=== PATIENT | female | born 1945 | race Caucasian/White ===

== ENCOUNTER 2017-11-05 11:19 | Inpatient (IN) | payer MEDICARE ==
--- NOTE | 2017-11-05 11:33 | Emergency Department Record ---
History of Present Illness - General Chief Complaint: Abdominal Pain Stated Complaint: ABD PAIN Time Seen by Provider: 11/05/17 11:32 Source: Patient Mode of Arrival: Ambulatory Limitations: No limitations - History of Present Illness Initial Comments: The patient is here due to a 14 hour hx of crampy lower abdominal pain with bloody stool for 14 hours. She has had multiple episodes since the onset numbering about 4. The patient denies any nausea, vomiting, fever, or use of any blood thinners. She has had a hysterectomy in the past and her last colonoscopy was 10 years ago. MD Complaint: Abdominal pain Onset/Timin -: Hour(s) Location: Suprapubic Migration to: No migration Quality: Cramping Consistency: Intermittent Associated Symptoms: Diarrhea, Melena, Other - Related Data Previous Rx's Medication Instructions Recorded Meclizine HCl [Antivert] 25 mg PO Q8H PRN #20 tablet 03/07/16 Allergies Allergy/AdvReac Type Severity Reaction Status Date / Time No Known Drug Allergies Allergy Verified 11/05/17 11:33 Travel Screening - Travel/Exposure Within Last 30 Days Have you traveled within the last 30 days?: No - Travel/Exposure Within Last Year Have you traveled outside the [place] in the last year?: No - Additonal Travel Details Have you been exposed to anyone with a communicable illness?: No - Travel Symptoms Symptom Screening: None Review of Systems Constitutional: Denies: Chills, Fever Eyes: Denies: Eye discharge ENT: Denies: Congestion Respiratory: Denies: Cough, Dyspnea Past Medical History - SOCIAL HISTORY Smoking Status: Never smoker Alcohol Use: None Drug Use: Occasional Drug Use Detail:: Marijuana - RESPIRATORY Hx Respiratory Disorders: No - CARDIOVASCULAR Hx Cardio Disorders: No - NEURO Hx Neuro Disorders: No - GI Hx GI Disorders: No - Hx Genitourinary Disorders: No - ENDOCRINE Hx Endocrine Disorders: No - MUSCULOSKELETAL Hx Musculoskeletal Disorders: No - PSYCH Hx Psych Problems: No - HEMATOLOGY/ONCOLOGY Hx Hematology/Oncology Disorders: No Family Medical History Any Significant Family History?: No Physical Exam - General General Appearance: Alert, Oriented x3, Cooperative, No acute distress - Head Head exam: Atraumatic, Normocephalic, Normal inspection - Eye Eye exam: Normal appearance, PERRL - ENT Throat exam: Normal inspection. negative: Tonsillar erythema, Tonsillar exudate - Neck Neck exam: Normal inspection, Full ROM. negative: Tenderness - Respiratory Respiratory exam: Normal lung sounds bilaterally. negative: Respiratory distress - Cardiovascular Cardiovascular Exam: Regular rate, Normal rhythm, Normal heart sounds - GI/Abdominal GI/Abdominal exam: Soft, Tenderness (There is mild lower abdominal tenderness.) . negative: Distended, Guarding, Rebound, Rigid - Rectal Rectal exam: Heme (+) stool, Normal inspection, Normal rectal tone - Extremities Extremities exam: Normal inspection, Full ROM, Normal capillary refill. negative: Tenderness - Neurological Neurological exam: Alert. negative: Motor sensory deficit Course Vital Signs 11/05/17 11:23 Temperature 98.1 F Pulse Rate 118 H Respiratory 20 Rate Blood Pressure 152/105 Pulse Ox 96 - Reevaluation(s) Reevaluation #1: The patient is doing better at this time. She was having some crampy pain after drinking the contrast but that is better now. She also has had 2 liquid BM's here in the ER and she thinks the last one did not have blood in it. 11/05/17 13:22 11/05/17 13:23 Reevaluation #2: The patient is doing a lot better at this time. Her HR was about 150 in what appeared to Aflutter. Now it appears she did convert back to NSR at 110. 11/05/17 14:24 Reevaluation #3: 2nd EKG: Sinus Tach at 104, neg ST-T changes. 11/05/17 14:44 Reevaluation #4: The patient is doing much better at this time. She is resting with no pain or discomfort. I did discuss the case with the patient and did recommend hospital admission and she did agree. I then did discuss the case with Dr. Gonzales and he did accept the patient for admission. 11/05/17 14:55 Medical Decision Making - Data Complexity MDM Data: Labs Ordered and/or Reviewed, X-Ray Ordered and/or Reviewed, EKG Ordered and/or Reviewed - Lab Data Result diagrams: 11/05/17 11:50 11/05/17 11:50 - EKG Data -: EKG Interpreted by Me (Aflutter at 150. ) EKG: Abnormal EKG - Radiology Data Radiology results: Report reviewed (CT: Colitis L colon from splenic flexure to mid sigmoid colon.) Disposition Disposition: Admit Clinical Impression: Lower GI bleed Disposition: Still a Patient at [facility] Decision to Admit: Admit from ER Decision to Admit Date: 11/05/17 Decision to Admit Time: 15:07 Accepting Physician: Janet Time Discussed w/Accepting Physician: 15:07 Condition: (2) Stable Time of Disposition: 15:07 Quality - Quality Measures Quality Measures: N/A - Blood Pressure Screening View Details: Yes Does Patient Have Any of the Following: No Blood Pressure Classification: Pre-Hypertensive BP Reading Systolic Measurement: 123 Diastolic Measurement: 81 Screening for High Blood Pressure: < Pre-Hypertensive BP, F/U Documented > [ [id number]] Pre-Hypertensive Follow-up Interventions: Referral to alternative/primary care provider.
[2017-11-05] MEDS ORDERED: SODIUM CHLORIDE 0.9% 500 ML IV ONE (11:40)
[2017-11-05] MEDS ORDERED: ONDANSETRON HCL IV 4 MG/2 ML VIAL IV ONE (11:40)
[2017-11-05 12:02] LABS: BASO % 0.1 % (0-6); EOS % 0.1 % (0-6); HEMATOCRIT 44.4 % (35.0-47.0); HEMOGLOBIN 15.1 gm/dl (11.6-16.0); LYMPH % 4.1 % (16-45); MEAN CELL VOLUME 84.4 fl (81-97); MEAN CORPUSCULAR HEMOGLOBIN 28.7 pg (27-33); MEAN PLATELET VOLUME 9.3 fl (7.4-10.4); MONO % 5.7 % (0-9); PLATELET COUNT 310 K/uL (130-400); RED BLOOD COUNT 5.26 M/uL (3.80-5.40); RED CELL DISTRIBUTION WIDTH 13.7 % (11.5-14.5); WHITE BLOOD COUNT W/O DIFF 19.1 K/uL (4.2-12.2)
[2017-11-05 12:14] LABS: PARTIAL THROMBOPLASTIN TIME 28.2 SECONDS (24.5-39.1); PLATELET ESTIMATE NORMAL (NORMAL); PROTHROMBIN TIME (PATIENT) 10.7 SECONDS (9.5-12.1)
[2017-11-05 12:18] LABS: BLOOD UREA NITROGEN 21 mg/dL (8-23); CREATININE 0.6 mg/dL (0.5-0.9); EST GLOMERULAR FILTRATION RATE > 60 mL/min; TOTAL PROTEIN 8.1 g/dL (6.6-8.7)
[2017-11-05 12:20] LABS: GLUCOSE,RANDOM 158 mg/dL (74-109)
[2017-11-05 12:23] LABS: ALBUMIN 4.9 g/dL (4.0-5.0); ALKALINE PHOSPHATASE 80 U/L (35-104); ALT/SGPT 11 U/L (<33); AST/SGOT 13 U/L (10.0-35.0); LIPASE 11 U/L (13-60)
[2017-11-05 12:24] LABS: BILIRUBIN,DIRECT < 0.2 mg/dL (0-0.3)
[2017-11-05] MEDS ORDERED: HYDROMORPHONE HCL 2 MG/ML VIAL IVP ONE (12:50)
[2017-11-05] MEDS ORDERED: 0.9 % SODIUM CHLORIDE 1,000 ML BAG IV ONE (13:11)
[2017-11-05 14:28] LABS: CREATINE PHOSPHOKINASE 26 U/L (26-192)
[2017-11-05 14:29] LABS: CKMB < 1.0 ng/mL (<3.77)
[2017-11-05] MEDS ORDERED: METRONIDAZOLE IVPB 500 MG/100 ML BAG IVPB ONE (14:48)
[2017-11-05] MEDS ORDERED: CEFTRIAXONE SODIUM 1 GM in 0.9 % SODIUM CHLORIDE 100ML 100 ML IVPB ONE (14:48)
[2017-11-05] MEDS ORDERED: CIPROFLOXACIN LACTATE/D5W 400 MG/200 ML BAG IVPB ONE (14:52)
[2017-11-05] MEDS ORDERED: CIPROFLOXACIN LACTATE/D5W 400 MG/200 ML BAG IVPB SCH ×2 (16:13→22:00)
[2017-11-05] MEDS ORDERED: 0.9 % SODIUM CHLORIDE 1000ML 1,000 ML IV PRN (16:13)
[2017-11-05] MEDS: METRONIDAZOLE IVPB 500 MG/100 ML BAG IVPB SCH (16:37)
[2017-11-05] MEDS ORDERED: PNEUM 13-VAL/PF 0.5 ML IM ONE (16:47)
[2017-11-05] MEDS ORDERED: FLU VAC QS 2017-18 (INPT, 6MO+) 60MCG/0.5ML IM ONE (16:47)
[2017-11-05] MEDS: 0.9 % SODIUM CHLORIDE 1000ML 1,000 ML IV SCH (17:49)
[2017-11-05] MEDS: ACETAMINOPHEN 325 MG TAB PO PRN (18:15)
[2017-11-05] MEDS ORDERED: METOPROLOL SUCC 50 MG TABLET PO ONE (18:31)
[2017-11-05 19:30] LABS: CKMB < 1.0 ng/mL (<3.77)
[2017-11-06] MEDS: ACETAMINOPHEN 325 MG TAB PO PRN ×3 (00:07→20:56)
[2017-11-06] MEDS: METRONIDAZOLE IVPB 500 MG/100 ML BAG IVPB SCH ×3 (00:08→16:43)
[2017-11-06] MEDS: CIPROFLOXACIN LACTATE/D5W 400 MG/200 ML BAG IVPB SCH ×2 (03:04→15:03)
[2017-11-06 03:26] LABS: CKMB < 1.0 ng/mL (<3.77)
[2017-11-06 03:33] LABS: BASO % 0.1 % (0-6); EOS % 0.9 % (0-6); HEMATOCRIT 34.1 % (35.0-47.0); HEMOGLOBIN 11.2 gm/dl (11.6-16.0); LYMPH % 7.3 % (16-45); MEAN CELL VOLUME 85.9 fl (81-97); MEAN CORPUSCULAR HEMOGLOBIN 28.2 pg (27-33); MEAN CORPUSCULAR HGB CONC 32.8 g/dl (32-36); MEAN PLATELET VOLUME 9.6 fl (7.4-10.4); PLATELET COUNT 230 K/uL (130-400); RED BLOOD COUNT 3.97 M/uL (3.80-5.40); RED CELL DISTRIBUTION WIDTH 13.3 % (11.5-14.5); WHITE BLOOD COUNT W/O DIFF 16.5 K/uL (4.2-12.2)
[2017-11-06 04:06] LABS: BLOOD UREA NITROGEN 11 mg/dL (8-23); CREATININE 0.6 mg/dL (0.5-0.9); EST GLOMERULAR FILTRATION RATE > 60 mL/min; GLUCOSE,RANDOM 104 mg/dL (74-109)
--- NOTE | 2017-11-06 07:20 | History and Physical Report ---
DATE OF ADMISSION: 11/05/2017 CHIEF COMPLAINT: Abdominal pain, diarrhea, and colitis by CT scan. HISTORY OF PRESENT ILLNESS: This 71-year-old female presented to the emergency department with abdominal pain which started one night prior to admission. She is also having diarrhea stools with some blood in the stool. Blood and clots came through when she went to the bathroom. She was seen in the emergency department by Dr. Montgomery, admitted with a diagnosis of colitis. She said she had about a dozen loose stools today. PAST MEDICAL HISTORY: Essentially negative. She had some vertigo a couple of years ago and was on meclizine. No medications at this time. PAST SURGICAL HISTORY: Hysterectomy and belly button removal. MEDICATIONS: 1. She takes an aspirin a day. 2. She uses also black cohosh. 3. She has had some meclizine but not recently. ALLERGIES: No known drug allergies. FAMILY/PSYCHOSOCIAL HISTORY: She has never smoked cigarettes. Occasional marijuana use. No alcohol. No family significant history. REVIEW OF SYSTEMS: HEENT: No upper respiratory infection symptoms, cough, cold, or congestion. Cardiovascular: No chest pain, palpitations, or arrhythmia. Respiratory: No cough, cold, or congestion. Gastrointestinal: She has left lower quadrant abdominal pain. No rebound or rigidity. Soft abdomen. Genitourinary: No dysuria, hematuria, frequency, or burning on urination. Musculoskeletal: No joint or bone abnormalities. Neurological: No CVA, paralysis, or paresthesias. Endocrine: No diabetes or thyroid disease. Integument: No rash, ulcers, change in moles, or yellow skin. PHYSICAL EXAMINATION: VITALS: Height 4 feet 11 inches, weight 110 pounds. Temperature 98.8, pulse 99, blood pressure 123/81, respiratory rate 18, pulse ox 98% on 2L O2. Her weight in the hospital was 110 pounds. IMPRESSION: 1. Acute diverticulitis. 2. Colitis. 3. Diarrhea. 4. Tachycardia, intermittent. When she got to the floor, she had developed tachycardia. Looks like an atrial fibrillation/flutter sort of pattern. We will get an EKG to confirm it. PLAN: IV Flagyl. IV Cipro. school lunch monitor. Will not give anticoagulants because of the bloody diarrhea and will hold the aspirin at this time. [facility]ITALHalina
--- NOTE | 2017-11-06 07:32 | CT SCAN REPORT ---
EXAM: EMERGENCY CT OF THE ABDOMEN AND PELVIS HISTORY: LOW ABDOMINAL AND PELVIC PAIN AND CRAMPING WITH BLOODY DIARRHEA SINCE LAST NIGHT. HYSTERECTOMY. TECHNIQUE: Axial CT scan of the abdomen and pelvis was performed following the intravenous administration of 100 ml of Omnipaque 300 as the IV contrast. Oral contrast was also utilized. Comparison: None. FINDINGS: No calcified gallstones are seen within the gallbladder. Diffuse fatty infiltration of the liver. No focal hepatic mass evident. No definite splenic, adrenal, pancreatic, or renal mass identified. 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 There are probably some parapelvic left renal cysts present as well. Oral contrast given has passed throughout the bowel to the rectum with no bowel obstruction evident, however, there is diffuse thickening of the wall of the colon from about the mid sigmoid level proximally to the splenic flexure. This probably represents a colitis involving the left side of the colon of uncertain etiology. The appendix is negative. The uterus is not identified consistent with the surgical history. No free intraperitoneal air or free intraperitoneal fluid evident. Some facet joint arthropathy in the lower lumbar spine. Lumbar curve to the left. Small calcified granuloma noted in the left base. IMPRESSION: 1. APPEARANCE CONSISTENT WITH A COLITIS LOCALIZED TO THE LEFT SIDE OF THE COLON FROM ABOUT THE LEVEL OF THE SPLENIC FLEXURE TO THE MID SIGMOID COLON. THIS IS OF UNCERTAIN ETIOLOGY AND CLINICAL CORRELATION IS SUGGESTED. THERE IS NO ASSOCIATED OBSTRUCTION WITH THE ORAL CONTRAST PASSING INTO THE RECTUM. 2. SMALL GRANULOMA LEFT LOWER LOBE. 3. MILD DIFFUSE FATTY INFILTRATION OF THE LIVER. 4. 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 JOB NUMBER: [id number] [facility]
[2017-11-06] MEDS ORDERED: METHYLPREDNISOLONE SOD 40MG/VIAL IVP ONE (08:15)
[2017-11-06] MEDS: METOPROLOL SUCC 25 MG TAB.ER PO SCH (09:15)
[2017-11-06] MEDS ORDERED: ASPIRIN 325 MG TABLET PO SCH (10:00)
[2017-11-06] MEDS: 0.9 % SODIUM CHLORIDE 1000ML 1,000 ML IV SCH ×2 (10:04→13:58)
[2017-11-06] MEDS ORDERED: HYDROMORPHONE HCL 2 MG/ML VIAL IVP PRN (13:08)
[2017-11-07] MEDS: METRONIDAZOLE IVPB 500 MG/100 ML BAG IVPB SCH ×2 (00:02→07:40)
[2017-11-07] MEDS: CIPROFLOXACIN LACTATE/D5W 400 MG/200 ML BAG IVPB SCH (04:37)
--- NOTE | 2017-11-07 09:04 | Discharge Note ---
VTE H&P Assessment - Risk for VTE Risk for VTE: No Risk Level: Very Low Risk Assessment Date: 11/05/17 Risk Assessment Time: 19:00 VTE Orders Placed or Will Be Placed: No VTE Reason for No Prophylaxis: Not Indicated Discharge Medications - Discharge Medications Prescriptions: Ciprofloxacin HCl [Cipro] 500 mg PO Q12HR #20 tablet Metoprolol Succinate [Toprol Xl] 25 mg PO DAILY #30 tab.er.24h Metronidazole [Flagyl] 500 mg PO TID #30 tablet Home Medications: Ambulatory Orders Acetaminophen [Tylenol 325Mg] 650 mg PO Q4H PRN tablet 11/07/17 [Last Taken Unknown] Ciprofloxacin HCl [Cipro] 500 mg PO Q12HR #20 tablet 11/07/17 [Last Taken Unknown] Metoprolol Succinate [Toprol Xl] 25 mg PO DAILY #30 tab.er.24h 11/07/17 [Last Taken Unknown] Metronidazole [Flagyl] 500 mg PO TID #30 tablet 11/07/17 [Last Taken Unknown] Discharge Note - Date Date of Discharge Note: 11/07/17 Disposition: Home, Self-Care Condition: (2) Stable Instructions: Abdominal Pain (ED) Additional Instructions: Dr. Gonzales's office will call to let you know if you have been accepted as a patient, you will be able to schedule an appointment if accepted. The office phone number is [phone]. Follow up with Dr. Gonzales on November 13 at 10:45am low fiber diet for 4 weeks Forms: Patient Portal Access Activity at Discharge: Increase Activity as Tolerated Diet at Discharge: Other (low fiber)
[2017-11-07] MEDS: METOPROLOL SUCC 25 MG TAB.ER PO SCH (09:47)
--- NOTE | 2017-11-07 12:10 | Discharge Summary ---
DATE: 11/07/2017 DATE OF ADMISSION: 11/05/2017 DISCHARGE DIAGNOSES: 1. Acute colitis. 2. Possible diverticulitis. 3. Sinus tachycardia with premature atrial contractions and premature ventricular contractions possibly secondary to caffeine. Metoprolol 25 mg XL was started once a day which controlled her PVCs. 4. Diarrhea secondary to colitis and diverticulitis with blood-tinged diarrhea. ATTENDING PHYSICIAN: Manas Gonzales DO REASON FOR HOSPITALIZATION: Abdominal pain, diarrhea, and colitis by CT scan. This 71-year-old female presented to the emergency department with abdominal pain which started one night prior to admission. She was also having diarrhea stools with some blood in her stools, blood and clots. She came into the emergency department for evaluation. Evaluated by Dr. Montgomery, admitted to the hospital for diagnosis of colitis. She states that she had about a dozen loose stools on the day of admission and some of them had blood in them. SIGNIFICANT FINDINGS: CT scan revealed appearance consistent with colitis localized to the left side of the colon from about the level of the splenic flexure of the mid sigmoid colon. This is of uncertain etiology, and clinical correlation is suggested. There is no associated obstruction with oral contents passing through into the rectum. Some granuloma left lower lobe. Mild diffuse fatty infiltration of the liver. 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 Her initial white count was 19,100, dropped down to 16,500, hemoglobin on discharge is 11.2. Her last set of electrolytes showing a BUN of 11, creatinine 0.6, potassium 3.8, sodium 142, calcium 8.3. Her cardiac enzymes were negative x3. Lipase was 11. Liver enzymes were normal. She had total bilirubin that was slightly elevated at 1.3. She had some problems with tachycardia. It looked like it was more a sinus tachycardia with artifact but sometimes it is hard to tell if it was AFib or atrial flutter there; however, when an EKG was done, it showed sinus tachycardia only with PACs and PVCs. She was started on metoprolol 25 mg XL, which controlled her PVCs and she has been in sinus rhythm since, once a day. THERAPY PROVIDED: The patient was started on Cipro IV twice a day, Flagyl 3 times a day, switched over to oral Cipro and Flagyl. Her pain control was with Tylenol and some Dilaudid in the emergency department. HOSPITAL COURSE: Gradually improved. CONDITION ON DISCHARGE: Much improved. We will schedule an outpatient GI consult for further evaluation of the colon. She said her last colonoscopy was about 9 or 10 years ago through [facility]. DISCHARGE INSTRUCTIONS: Discussed the case with Dr. Maciel. He wanted me to take the case. Follow up with Dr. Gonzales next 11/13/2017. Outpatient consult with [facility] in 2-3 weeks, possibly even longer depending on how much healing time they want prior to doing a colonoscopy. We will continue Cipro 500 mg b.i.d. for 8 more days, Flagyl 500 mg t.i.d. for 8 days, Toprol-XL 25 mg a day. It is a new medication to control her sinus tachycardia. She said she is going to drop back her coffee to 1 cup a day. She may need to go to decaffeinated coffee. Low-fiber diet for 4 weeks and then we will go to a high fiber diet. We will stop some of her home remedies she was taking. We will stop the aspirin once a day, stop the cohosh for her hot flashes and only use meclizine if necessary. SAMMYD
== END 2017-11-07 11:25 | disposition home or self-care (01) | DRG 392 ==
LOC: ER 11:19 → MEDSURG 15:43
PROVIDERS: ADMIT Emergency Medicine; ATTEND Emergency Medicine
DX: R10.30 Lower abdominal pain, unspecified (principal); K57.92 Diverticulitis of intestine, part unspecified, without perforation or abscess without bleeding; K52.9 Noninfective gastroenteritis and colitis, unspecified; K92.1 Melena; R00.0 Tachycardia, unspecified; R19.7 Diarrhea, unspecified
CPT/HCPCS: 99285 ×2; 96374; 96365; 96375; 82550; 83690; 85730; 85610; 80076; 82553; 80048; 84484; 85027; 74177; 93005 ×2; 93010 ×2; Q9967; J0744; J2405; J1170; 90670; 90686; 94761; 99223; J2920; J7030

== ENCOUNTER 2018-03-18 09:27 | Day surgery (SDC) | payer MEDICARE ==
[2018-03-18] MEDS ORDERED: PROPOFOL 10 MG/ML VIAL IV ONE (09:28)
[2018-03-18] MEDS ORDERED: LIDOCAINE 2% MDV (20MG/ML) 20ML VIAL IV ONE (09:28)
--- NOTE | 2018-03-20 11:40 | Operative Note ---
DATE OF SURGERY: 03/18/2018 OPERATION: COLONOSCOPY to the cecum. INDICATION: Recent hospitalization at the end of October of this year with diagnosis of colitis and diverticulitis based on patient's history of acute abdominal pain followed by bloody diarrhea. These symptoms resolved with antibiotic treatment and hospitalization. She presents at this time claiming that she is "back to normal" with normal stooling. It may have been she suffered with acute ischemic colitis as I reviewed her records. Her last colonoscopy she claims was 10 years ago although I did not have record of this. ANESTHESIA: Intravenous sedation was administered by the department of anesthesiology and included Diprivan titrated to effect. PROCEDURE: Following informed consent from this alert individual including a discussion of the risks and benefits of the procedure and an opportunity for the patient to ask questions, the patient was in the left lateral decubitus position. A digital rectal examination was performed. No abnormalities were noted. Following this, the Olympus [id number] video colonoscope was inserted into the rectum without resistance. The rectal mucosa had a normal appearance with normal folds and distensibility. The colonoscope was advanced up through the bowel to the level of the cecum with some abdominal pressure support applied by the nursing staff to facilitate reaching the cecum. There were a few small diverticula noted in the sigmoid colon and in the ascending colon. No other mucosal changes appreciated. The cecum was well defined by noting the appendiceal orifice and ileocecal valve. Retroflexion in the cecum was endoscopically unremarkable. From this point, the colonoscope was then withdrawn. The colon preparation was good. No additional changes were appreciated. Again, mild diverticulosis was seen in the right and left colon. No polyps or tumors were noted. Retroflexion in the rectum was endoscopically normal. The instrument was straightened and withdrawn. The patient tolerated the procedure well and was returned to the recovery area in stable condition. IMPRESSION: 1. Mild diverticulosis. 2. Otherwise unremarkable colonoscopy to the cecum. RECOMMENDATIONS: Again, the patient most likely suffered with acute ischemic colitis with abdominal pain followed by diarrhea and rectal bleeding. CT scan at that time demonstrated inflammatory changes from the transverse colon to the mid sigmoid colon. The patient was instructed to follow up with Dr. Maciel. Should she have another attack of these symptoms, perhaps colonoscopy at that time would be beneficial. Followup will be with Dr. Maciel. As always, thank you for allowing me to participate in the care of your patient. CC: Sadiq Maciel, DO MTDD
== END 2018-03-18 11:36 | disposition home or self-care (01) ==
LOC: HOP 09:27
PROVIDERS: ATTEND Internal Medicine Gastroenterology
DX: Z87.19 Personal history of other diseases of the digestive system (principal); K57.30 Diverticulosis of large intestine without perforation or abscess without bleeding